=== PATIENT | male | born 1970 | race Caucasian/White ===

== ENCOUNTER 2021-05-01 09:07 | Inpatient (IN) ==
[2021-05-01] MEDS ORDERED: SODIUM CHLORIDE 0.9% 1,000 ML IV STA (09:40)
[2021-05-01] MEDS ORDERED: ONDANSETRON 4 MG/2 ML VIAL IV STA (09:40)
[2021-05-01] MEDS ORDERED: HYDROmorphone 2 MG/1 ML VIAL IV STA (09:40)
[2021-05-01 10:38] LABS: Basophils % 0.2 % (0.0-0.8); Eosinophils % 0.1 % (0.00-10.9); Hematocrit 47.5 VOL% (42.0-52.0); Hemoglobin 14.9 GM/DL (14.0-18.0); Immature Granulocytes % 0.5 %; Immature Granulocytes Absolute 0.09 #; Lymphocytes # 0.6 10*3/uL (1.4-4.0); Lymphocytes % 3.3 % (21.2-54.2); Mean Corpuscular HGB Conc 31.4 GM/DL (32-36); Mean Corpuscular Volume 80.4 FL (87-102); Mean Platelet Volume 8.4 FL (9.6-12.0); Monocytes % 6.9 % (1.7-12.7); Platelet Count 228 T/CUMM (130-400); Red Blood Count 5.91 MC/CUMM (3.8-5.5); Red Cell Distribution Width 14.7 % (9.3-17.3); White Blood Count 17.4 T/CUMM (4-12)
[2021-05-01 11:01] LABS: Albumin 3.5 G/DL (3.4-5.0); Bilirubin,Total 0.6 MG/DL (0.20-1.00); Calcium 9.4 MG/DL (8.5-10.1); Osmolality,Calculated 277.1 MOS/KG (273-304); Potassium 4.9 MMOL/L (3.5-5.1); Total Protein 8.6 G/DL (6.4-8.2)
[2021-05-01 12:28] LABS: Bacteria,Urine Many /HPF (Few); Bilirubin,Urine Negative (Negative); Blood, Urine Small mg/dL (Negative); Glucose,Urine (UA) Negative (Negative); Ketones,Urine Negative (Negative); Mucus,Urine Few /LPF (Occasional); Nitrite,Urine Positive (Negative); Protein,Urine >=500 MG/DL; RBC,Urine 42 /HPF (0-4); Urine Appearance CLOUDY (Clear); Urine Color Amber (Yellow); Urine Specific Gravity 1.016 (1.001-1.035); Urine Urobilinogen < 2.0 EU/DL (<2.0)
[2021-05-01 13:15] LABS: Band Neutrophils 2 % (0-10); Lymphocytes 7 % (20-55); Microcytosis 1+; Platelet Estimate Normal; Segmented Neutrophils 85 % (50-85); Total Cells Counted 100
[2021-05-01] MEDS ORDERED: MEROPENEM 2,000 MG in SODIUM CHLORIDE 0.9% 100 ML IV ONE (13:53)
[2021-05-01] MEDS ORDERED: ONDANSETRON 4 MG/2 ML VIAL IV PRN (14:49)
[2021-05-01] MEDS ORDERED: SODIUM CHLORIDE 0.9% 2,000 ML IV STA (14:52)
[2021-05-01] MEDS ORDERED: MEROPENEM 500 MG in SODIUM CHLORIDE 0.9% 100 ML IV SCH (15:00)
[2021-05-01] MEDS: MEROPENEM 500 MG in SODIUM CHLORIDE 0.9% 100 ML IV SCH ×2 (15:11→21:45)
[2021-05-01] MEDS: SODIUM CHLORIDE 0.9% 1,000 ML IV SCH ×2 (16:20→22:03)
[2021-05-01 16:45] LABS: Thyroid Stimulating Hormone 1.19 uIU/ml (0.358-3.74)
[2021-05-01] MEDS: PANTOPRAZOLE 40 MG TABLET PO SCH (16:55)
[2021-05-01] MEDS: POLYMYXIN/TRIMETHOPRIM OPH SOL 10 ML BOTTLE BOTH EYES SCH ×2 (18:45→20:51)
[2021-05-01] MEDS: HEPARIN 5,000 UNIT/1 ML VIAL SUBCUT SCH (20:50)
[2021-05-02] MEDS: POLYMYXIN/TRIMETHOPRIM OPH SOL 10 ML BOTTLE BOTH EYES SCH ×8 (00:15→20:58)
[2021-05-02] MEDS: SODIUM CHLORIDE 0.9% 1,000 ML IV SCH ×4 (01:10→19:45)
[2021-05-02] MEDS: MEROPENEM 500 MG in SODIUM CHLORIDE 0.9% 100 ML IV SCH ×2 (05:36→18:24)
[2021-05-02 05:46] LABS: Albumin 2.7 G/DL (3.4-5.0); Bilirubin,Total 1.7 MG/DL (0.20-1.00); Calcium 8.4 MG/DL (8.5-10.1); Osmolality,Calculated 285.4 MOS/KG (273-304); Potassium 4.3 MMOL/L (3.5-5.1); Risk Ratio 5.68; Total Protein 7.3 G/DL (6.4-8.2); VLDL Cholesterol 34.6 MG/DL
[2021-05-02 05:56] LABS: Basophils % 0.3 % (0.0-0.8); Eosinophils % 0.1 % (0.00-10.9); Hematocrit 41.9 VOL% (42.0-52.0); Hemoglobin 13.1 GM/DL (14.0-18.0); Immature Granulocytes % 0.6 %; Immature Granulocytes Absolute 0.09 #; Lymphocytes # 0.9 10*3/uL (1.4-4.0); Lymphocytes % 5.8 % (21.2-54.2); Mean Corpuscular HGB Conc 31.3 GM/DL (32-36); Mean Corpuscular Volume 81.2 FL (87-102); Mean Platelet Volume 8.7 FL (9.6-12.0); Monocytes % 8.8 % (1.7-12.7); Neutrophils % 84.4 % (38.7-73.9); Platelet Count 199 T/CUMM (130-400); Red Blood Count 5.16 MC/CUMM (3.8-5.5); Red Cell Distribution Width 15.1 % (9.3-17.3); White Blood Count 15.4 T/CUMM (4-12)
[2021-05-02] MEDS: HEPARIN 5,000 UNIT/1 ML VIAL SUBCUT SCH ×2 (08:11→20:59)
[2021-05-02] MEDS: PANTOPRAZOLE 40 MG TABLET PO SCH (08:11)
[2021-05-02 09:51] LABS: Bilirubin,Urine Negative (Negative); Blood, Urine Moderate mg/dL (Negative); Glucose,Urine (UA) Negative (Negative); Ketones,Urine Negative (Negative); Nitrite,Urine Negative (Negative); Protein,Urine >=500 MG/DL; RBC,Urine 312 /HPF (0-4); Urine Appearance CLOUDY (Clear); Urine Color Yellow (Yellow); Urine Specific Gravity 1.049 (1.001-1.035); Urine Urobilinogen < 2.0 EU/DL (<2.0)
[2021-05-02 12:26] LABS: PT Patient Result 11.6 SECS (10.5-12.0)
[2021-05-03] MEDS: POLYMYXIN/TRIMETHOPRIM OPH SOL 10 ML BOTTLE BOTH EYES SCH ×8 (00:30→22:09)
[2021-05-03] MEDS: SODIUM CHLORIDE 0.9% 1,000 ML IV SCH ×5 (01:51→23:14)
[2021-05-03] MEDS: MEROPENEM 500 MG in SODIUM CHLORIDE 0.9% 100 ML IV SCH ×2 (05:24→18:04)
[2021-05-03 05:29] LABS: Basophils % 0.4 % (0.0-0.8); Eosinophils # 0.2 10*3/uL (0.0-0.87); Eosinophils % 2.1 % (0.00-10.9); Hemoglobin 12.2 GM/DL (14.0-18.0); Immature Granulocytes % 0.4 %; Immature Granulocytes Absolute 0.03 #; Lymphocytes # 0.8 10*3/uL (1.4-4.0); Lymphocytes % 10.5 % (21.2-54.2); Mean Corpuscular HGB Conc 31.3 GM/DL (32-36); Mean Corpuscular Volume 80.9 FL (87-102); Mean Platelet Volume 8.8 FL (9.6-12.0); Neutrophils % 75.6 % (38.7-73.9); Platelet Count 172 T/CUMM (130-400); Red Blood Count 4.82 MC/CUMM (3.8-5.5); Red Cell Distribution Width 15.1 % (9.3-17.3); White Blood Count 7.7 T/CUMM (4-12)
[2021-05-03 05:54] LABS: Albumin 2.5 G/DL (3.4-5.0); Bilirubin,Total 0.6 MG/DL (0.20-1.00); Calcium 8.7 MG/DL (8.5-10.1); Osmolality,Calculated 282.5 MOS/KG (273-304); Potassium 4.2 MMOL/L (3.5-5.1); Total Protein 7.2 G/DL (6.4-8.2)
[2021-05-03] MEDS: PANTOPRAZOLE 40 MG TABLET PO SCH (08:40)
[2021-05-03] MEDS: HEPARIN 5,000 UNIT/1 ML VIAL SUBCUT SCH ×2 (08:42→22:08)
[2021-05-03] MEDS: AMPICILLIN INJ 1,000 MG in SODIUM CHLORIDE 0.9% 100 ML IV SCH (22:09)
[2021-05-04] MEDS: POLYMYXIN/TRIMETHOPRIM OPH SOL 10 ML BOTTLE BOTH EYES SCH ×8 (00:27→20:55)
[2021-05-04] MEDS: SODIUM CHLORIDE 0.9% 1,000 ML IV SCH ×4 (04:10→23:01)
[2021-05-04 05:06] LABS: Basophils % 0.3 % (0.0-0.8); Eosinophils # 0.3 10*3/uL (0.0-0.87); Eosinophils % 5.1 % (0.00-10.9); Hematocrit 39.4 VOL% (42.0-52.0); Hemoglobin 12.4 GM/DL (14.0-18.0); Immature Granulocytes % 0.3 %; Immature Granulocytes Absolute 0.02 #; Lymphocytes # 0.8 10*3/uL (1.4-4.0); Lymphocytes % 14.4 % (21.2-54.2); Mean Corpuscular HGB Conc 31.5 GM/DL (32-36); Mean Corpuscular Volume 79.9 FL (87-102); Mean Platelet Volume 8.9 FL (9.6-12.0); Monocytes % 10.9 % (1.7-12.7); Platelet Count 191 T/CUMM (130-400); Red Blood Count 4.93 MC/CUMM (3.8-5.5); Red Cell Distribution Width 14.6 % (9.3-17.3); White Blood Count 5.9 T/CUMM (4-12)
[2021-05-04 05:32] LABS: Alanine Aminotransferase 21 U/L (16-61); Albumin 2.4 G/DL (3.4-5.0); Alkaline Phosphatase 119 U/L (45-117); Aspartate Amino Transferase 16 U/L (0-37); Bilirubin,Total < 0.39 MG/DL (0.20-1.00); Blood Urea Nitrogen 26 MG/DL (7-18); Calcium 8.7 MG/DL (8.5-10.1); Carbon Dioxide 22 MMOL/L (21-32); Estimated Glom Filtration Rate 41 ML/MIN; Glucose 96 MG/DL (74-106); Osmolality,Calculated 285.3 MOS/KG (273-304); Potassium 4.1 MMOL/L (3.5-5.1); Sodium 141 MMOL/L (136-145); Total Protein 7.1 G/DL (6.4-8.2)
[2021-05-04] MEDS: AMPICILLIN INJ 1,000 MG in SODIUM CHLORIDE 0.9% 100 ML IV SCH ×3 (05:43→21:02)
[2021-05-04] MEDS: MEROPENEM 500 MG in SODIUM CHLORIDE 0.9% 100 ML IV SCH ×2 (06:22→18:25)
[2021-05-04] MEDS: PANTOPRAZOLE 40 MG TABLET PO SCH (09:26)
[2021-05-04] MEDS: HEPARIN 5,000 UNIT/1 ML VIAL SUBCUT SCH ×2 (09:28→20:52)
[2021-05-05] MEDS: POLYMYXIN/TRIMETHOPRIM OPH SOL 10 ML BOTTLE BOTH EYES SCH ×5 (01:43→16:18)
[2021-05-05] MEDS: SODIUM CHLORIDE 0.9% 1,000 ML IV SCH ×3 (04:01→16:20)
[2021-05-05] MEDS: AMPICILLIN INJ 1,000 MG in SODIUM CHLORIDE 0.9% 100 ML IV SCH (05:24)
[2021-05-05] MEDS: MEROPENEM 500 MG in SODIUM CHLORIDE 0.9% 100 ML IV SCH (06:11)
[2021-05-05 06:19] LABS: Basophils % 0.5 % (0.0-0.8); Eosinophils # 0.3 10*3/uL (0.0-0.87); Eosinophils % 4.9 % (0.00-10.9); Hemoglobin 12.3 GM/DL (14.0-18.0); Immature Granulocytes % 0.3 %; Immature Granulocytes Absolute 0.02 #; Lymphocytes % 15.6 % (21.2-54.2); Mean Corpuscular HGB Conc 31.5 GM/DL (32-36); Mean Corpuscular Volume 79.3 FL (87-102); Mean Platelet Volume 8.8 FL (9.6-12.0); Monocytes % 8.8 % (1.7-12.7); Neutrophils % 69.9 % (38.7-73.9); Platelet Count 230 T/CUMM (130-400); Red Blood Count 4.92 MC/CUMM (3.8-5.5); Red Cell Distribution Width 14.4 % (9.3-17.3); White Blood Count 6.3 T/CUMM (4-12)
[2021-05-05 08:16] VITALS: BP 129/72
[2021-05-05] MEDS: PANTOPRAZOLE 40 MG TABLET PO SCH (09:37)
[2021-05-05] MEDS: HEPARIN 5,000 UNIT/1 ML VIAL SUBCUT SCH (09:38)
[2021-05-05] MEDS ORDERED: AMPICILLIN/SULBACTAM 3,000 MG in SODIUM CHLORIDE 0.9% 100 ML IV SCH (11:00)
== END 2021-05-05 13:26 | disposition home or self-care (01) | DRG 698 ==
LOC: EDBD → EDUNIT# → N.ED 09:07 → SUATTDRO 13:55 → N.TELEN 13:55
PROVIDERS: ADMIT Internal Medicine; ATTEND Hospitalist

== ENCOUNTER 2022-01-14 06:28 | Inpatient (IN) ==
[2022-01-14] MEDS ORDERED: HYDROmorphone 1 MG/1 ML SYRINGE IV STA (06:56)
[2022-01-14] MEDS ORDERED: SODIUM CHLORIDE 0.9% 1,000 ML IV STA ×2 (06:56→10:23)
[2022-01-14 07:31] LABS: Basophils % 0.2 % (0.0-0.8); Eosinophils % 0.5 % (0.00-10.9); Hemoglobin 14.2 GM/DL (14.0-18.0); Immature Granulocytes % 0.5 %; Immature Granulocytes Absolute 0.02 #; Lymphocytes # 0.6 10*3/uL (1.4-4.0); Lymphocytes % 15.6 % (21.2-54.2); Mean Corpuscular HGB Conc 32.3 GM/DL (32-36); Mean Corpuscular Volume 80.1 FL (87-102); Mean Platelet Volume 9.5 FL (9.6-12.0); Monocytes # 1.1 10*3/uL (0.11-0.8); Monocytes % 26.2 % (1.7-12.7); Platelet Count 271 T/CUMM (130-400); Red Blood Count 5.49 MC/CUMM (3.8-5.5); Red Cell Distribution Width 18.4 % (9.3-17.3); White Blood Count 4.1 T/CUMM (4-12)
[2022-01-14 07:50] LABS: Alanine Aminotransferase 30 U/L (16-61); Albumin 3.4 G/DL (3.4-5.0); Alkaline Phosphatase 182 U/L (45-117); Aspartate Amino Transferase 12 U/L (0-37); Blood Urea Nitrogen 23 MG/DL (7-18); Calcium 10.2 MG/DL (8.5-10.1); Carbon Dioxide 23 MMOL/L (21-32); Chloride 97 MMOL/L (98-107); Glucose 161 MG/DL (74-106); Osmolality,Calculated 274.2 MOS/KG (273-304); Potassium 3.1 MMOL/L (3.5-5.1); Sodium 134 MMOL/L (136-145); Total Protein 9.1 G/DL (6.4-8.2)
[2022-01-14 07:59] LABS: Band Neutrophils 15 % (0-10); Lymphocytes 16 % (20-55); Total Cells Counted 100
[2022-01-14 08:01] LABS: Hypochromia Slight; Microcytosis 1+; Polychromasia Slight
[2022-01-14 08:03] LABS: Platelet Estimate Normal
[2022-01-14] MEDS ORDERED: PIPERACILLIN/TAZOBACTAM 3,375 MG in SODIUM CHLORIDE 0.9% 100 ML IV STA (08:18)
[2022-01-14] MEDS ORDERED: DEXTROSE 10% 250 ML BAG IV PRN (10:33)
[2022-01-14] MEDS ORDERED: GLUCAGON 1 MG VIAL IM PRN (10:33)
[2022-01-14] MEDS ORDERED: POTASSIUM CHLORIDE RIDER 10 MEQ/100 ML PREMIX IV PRN (10:53)
[2022-01-14] MEDS ORDERED: LACTATED RINGERS 1,000 ML IV SCH (11:00)
[2022-01-14] MEDS: ENOXAPARIN 40 MG/0.4 ML SYRINGE SUBCUT SCH (11:21)
[2022-01-14 12:29] LABS: Urine Appearance Cloudy (Clear); Urine Color Brown (Yellow)
[2022-01-14 12:30] LABS: Amorphous Crystals,Urine Occasional /HPF (Few); Bilirubin,Urine Small mg/dL (Negative); Blood, Urine Moderate mg/dL (Negative); Glucose,Urine (UA) Negative (Negative); Ketones,Urine Trace mg/dL (Negative); Mucus,Urine Occasional /LPF (Occasional); Nitrite,Urine Positive (Negative); Protein,Urine >=300 mg/dL (Negative); RBC,Urine 138 /HPF (0-4); Urine pH 8.5 (4.5-8.0)
[2022-01-14] MEDS ORDERED: MAGNESIUM SULF RIDER 4 GM/100 ML PREMIX IV ONE (12:51)
[2022-01-14] MEDS: POTASSIUM CHLORIDE RIDER 20 MEQ/100 ML PREMIX IV SCH ×2 (16:25→20:16)
[2022-01-14] MEDS: PIPERACILLIN/TAZOBACTAM 3,375 MG in SODIUM CHLORIDE 0.9% 100 ML IV SCH (17:33)
[2022-01-14] MEDS: ONDANSETRON 4 MG/2 ML VIAL IV PRN (20:16)
[2022-01-14] MEDS: HYDROmorphone 1 MG/1 ML SYRINGE IV PRN (20:17)
[2022-01-15] MEDS: PIPERACILLIN/TAZOBACTAM 3,375 MG in SODIUM CHLORIDE 0.9% 100 ML IV SCH ×3 (00:11→16:53)
[2022-01-15] MEDS: ONDANSETRON 4 MG/2 ML VIAL IV PRN ×2 (05:04→21:05)
[2022-01-15 06:03] LABS: Basophils % 0.6 % (0.0-0.8); Eosinophils # 0.1 10*3/uL (0.0-0.87); Eosinophils % 2.1 % (0.00-10.9); Hematocrit 40.1 VOL% (42.0-52.0); Hemoglobin 12.7 GM/DL (14.0-18.0); Immature Granulocytes % 0.3 %; Immature Granulocytes Absolute 0.01 #; Lymphocytes # 0.7 10*3/uL (1.4-4.0); Mean Corpuscular HGB Conc 31.7 GM/DL (32-36); Mean Corpuscular Volume 81.2 FL (87-102); Mean Platelet Volume 9.4 FL (9.6-12.0); Monocytes # 0.9 10*3/uL (0.11-0.8); Monocytes % 27.5 % (1.7-12.7); Neutrophils % 49.5 % (38.7-73.9); Platelet Count 250 T/CUMM (130-400); Red Blood Count 4.94 MC/CUMM (3.8-5.5); Red Cell Distribution Width 18.2 % (9.3-17.3); White Blood Count 3.4 T/CUMM (4-12)
[2022-01-15 06:21] LABS: Calcium 9.6 MG/DL (8.5-10.1); Osmolality,Calculated 279.7 MOS/KG (273-304); Potassium 3.3 MMOL/L (3.5-5.1)
[2022-01-15 07:17] LABS: Band Neutrophils 7 % (0-10); Eosinophils 1 % (0-10); Hypochromia Slight; Lymphocytes 21 % (20-55); Microcytosis Slight; Platelet Estimate Adequate; Total Cells Counted 100
[2022-01-15] MEDS: PANTOPRAZOLE 40 MG VIAL IV SCH (10:28)
[2022-01-15] MEDS ORDERED: hydrALAZINE 20 MG/1 ML VIAL IV PRN (12:38)
[2022-01-15] MEDS: ENOXAPARIN 40 MG/0.4 ML SYRINGE SUBCUT SCH (14:53)
[2022-01-15] MEDS: POTASSIUM CHLORIDE RIDER 10 MEQ/100 ML PREMIX IV SCH ×2 (14:54→16:01)
[2022-01-15] MEDS: LACTATED RINGERS 1,000 ML IV SCH (16:30)
[2022-01-15] MEDS: HYDROmorphone 1 MG/1 ML SYRINGE IV PRN ×2 (16:53→21:05)
[2022-01-16] MEDS: PIPERACILLIN/TAZOBACTAM 3,375 MG in SODIUM CHLORIDE 0.9% 100 ML IV SCH ×2 (00:18→08:30)
[2022-01-16] MEDS: HYDROmorphone 1 MG/1 ML SYRINGE IV PRN ×7 (00:18→21:47)
[2022-01-16] MEDS: LACTATED RINGERS 1,000 ML IV SCH ×2 (00:22→12:30)
[2022-01-16] MEDS: ONDANSETRON 4 MG/2 ML VIAL IV PRN ×2 (03:07→21:48)
[2022-01-16 05:29] LABS: Basophils % 0.5 % (0.0-0.8); Eosinophils # 0.1 10*3/uL (0.0-0.87); Eosinophils % 2.5 % (0.00-10.9); Hematocrit 38.6 VOL% (42.0-52.0); Hemoglobin 12.3 GM/DL (14.0-18.0); Immature Granulocytes % 0.7 %; Immature Granulocytes Absolute 0.03 #; Lymphocytes # 0.9 10*3/uL (1.4-4.0); Lymphocytes % 20.9 % (21.2-54.2); Mean Corpuscular HGB Conc 31.9 GM/DL (32-36); Mean Corpuscular Volume 81.4 FL (87-102); Mean Platelet Volume 9.4 FL (9.6-12.0); Monocytes # 0.9 10*3/uL (0.11-0.8); Monocytes % 21.1 % (1.7-12.7); Neutrophils % 54.3 % (38.7-73.9); Platelet Count 277 T/CUMM (130-400); Red Blood Count 4.74 MC/CUMM (3.8-5.5); White Blood Count 4.4 T/CUMM (4-12)
[2022-01-16 05:50] LABS: Calcium 9.7 MG/DL (8.5-10.1); Osmolality,Calculated 283.4 MOS/KG (273-304); Potassium 3.3 MMOL/L (3.5-5.1)
[2022-01-16 07:34] LABS: Band Neutrophils 2 % (0-10); Eosinophils 2 % (0-10); Hypochromia Slight; Lymphocytes 24 % (20-55); Microcytosis Slight; Platelet Estimate Adequate; Total Cells Counted 100
[2022-01-16] MEDS: PANTOPRAZOLE 40 MG VIAL IV SCH (09:33)
[2022-01-16] MEDS: POTASSIUM CHLORIDE RIDER 10 MEQ/100 ML PREMIX IV SCH ×3 (11:48→13:57)
[2022-01-16] MEDS: ENOXAPARIN 40 MG/0.4 ML SYRINGE SUBCUT SCH (11:54)
[2022-01-16] MEDS ORDERED: POTASSIUM CHLORIDE 20 MEQ TABLET PO ONE (15:48)
[2022-01-16] MEDS: AMPICILLIN INJ 2,000 MG in SODIUM CHLORIDE 0.9% 100 ML IV SCH ×2 (17:03→21:48)
[2022-01-17] MEDS: HYDROmorphone 1 MG/1 ML SYRINGE IV PRN ×3 (00:48→08:20)
[2022-01-17] MEDS: AMPICILLIN INJ 2,000 MG in SODIUM CHLORIDE 0.9% 100 ML IV SCH ×4 (00:48→11:43)
[2022-01-17] MEDS: LACTATED RINGERS 1,000 ML IV SCH (04:21)
[2022-01-17 04:37] LABS: Basophils % 0.4 % (0.0-0.8); Eosinophils # 0.2 10*3/uL (0.0-0.87); Eosinophils % 2.7 % (0.00-10.9); Immature Granulocytes % 1.1 %; Immature Granulocytes Absolute 0.06 #; Lymphocytes # 1.2 10*3/uL (1.4-4.0); Lymphocytes % 21.7 % (21.2-54.2); Mean Corpuscular HGB Conc 31.4 GM/DL (32-36); Mean Corpuscular Volume 82.5 FL (87-102); Mean Platelet Volume 9.2 FL (9.6-12.0); Monocytes # 0.9 10*3/uL (0.11-0.8); Monocytes % 17.1 % (1.7-12.7); Platelet Count 269 T/CUMM (130-400); Red Blood Count 4.24 MC/CUMM (3.8-5.5); Red Cell Distribution Width 18.1 % (9.3-17.3); White Blood Count 5.5 T/CUMM (4-12)
[2022-01-17 05:05] LABS: Calcium 9.1 MG/DL (8.5-10.1); Osmolality,Calculated 282.3 MOS/KG (273-304); Potassium 3.4 MMOL/L (3.5-5.1)
[2022-01-17 05:11] LABS: Eosinophils 2 % (0-10); Hypochromia Slight; Lymphocytes 21 % (20-55); Microcytosis Slight; Platelet Estimate Adequate; Total Cells Counted 100
[2022-01-17] MEDS: PANTOPRAZOLE 40 MG VIAL IV SCH (08:20)
[2022-01-17] MEDS ORDERED: SODIUM CHLORIDE 0.9% 1,000 ML IV SCH (09:00)
[2022-01-17] MEDS ORDERED: propofoL 200 MG/20 ML VIAL IV ONE (09:46)
[2022-01-17] MEDS ORDERED: LIDOCAINE 2% 5 ML VIAL ONE (09:46)
[2022-01-17] MEDS: ENOXAPARIN 40 MG/0.4 ML SYRINGE SUBCUT SCH (11:41)
[2022-01-17 12:27] VITALS: BP 121/80
[2022-01-17] MEDS ORDERED: HYDROCORTISONE 25 MG SUPP RECTAL SCH (15:00)
== END 2022-01-17 15:28 | disposition home or self-care (01) | DRG 389 ==
LOC: N.ED 06:28 → SUATTDRO 09:54 → N.EDINP 09:54 → N.TELES 12:49
PROVIDERS: ADMIT Emergency Medicine; ATTEND Internal Medicine

== ENCOUNTER 2022-04-17 11:14 | Inpatient (IN) ==
[2022-04-17] MEDS ORDERED: HYDROmorphone 1 MG/1 ML SYRINGE IV STA (11:43)
[2022-04-17] MEDS ORDERED: ONDANSETRON 4 MG/2 ML VIAL IV STA (11:46)
[2022-04-17 12:14] LABS: Basophils % 0.6 % (0.0-0.8); Eosinophils # 0.1 10*3/uL (0.0-0.87); Eosinophils % 2.8 % (0.00-10.9); Hematocrit 33.1 VOL% (42.0-52.0); Hemoglobin 10.4 GM/DL (14.0-18.0); Immature Granulocytes % 0.4 %; Immature Granulocytes Absolute 0.02 #; Lymphocytes # 0.4 10*3/uL (1.4-4.0); Mean Corpuscular HGB Conc 31.4 GM/DL (32-36); Mean Corpuscular Volume 86.6 FL (87-102); Mean Platelet Volume 8.8 FL (9.6-12.0); Monocytes # 0.5 10*3/uL (0.11-0.8); Monocytes % 11.3 % (1.7-12.7); Neutrophils % 75.9 % (38.7-73.9); Platelet Count 194 T/CUMM (130-400); Red Blood Count 3.82 MC/CUMM (3.8-5.5); White Blood Count 4.7 T/CUMM (4-12)
[2022-04-17 12:24] LABS: INR 1.2; Partial Thromboplastin Time 32.5 SECS (23.7-32.9)
[2022-04-17] MEDS ORDERED: DEXAMETHASONE 10 MG/1 ML VIAL IV STA (12:30)
[2022-04-17 12:37] LABS: Calcium 8.5 MG/DL (8.5-10.1); Osmolality,Calculated 280.1 MOS/KG (273-304); Potassium 3.1 MMOL/L (3.5-5.1)
[2022-04-17 13:18] LABS: Sedimentation Rate-Westergren 57 MM/HR (0-15)
[2022-04-17] MEDS ORDERED: ACETAMINOPHEN 325 MG TABLET PO PRN (13:19)
[2022-04-17] MEDS ORDERED: POTASSIUM CHLORIDE 20 MEQ TABLET PO STA (13:31)
[2022-04-17] MEDS: HYDROmorphone 1 MG/1 ML SYRINGE IV PRN ×3 (16:41→23:54)
[2022-04-17] MEDS: ONDANSETRON 4 MG/2 ML VIAL IV PRN (16:52)
[2022-04-17] MEDS: DEXAMETHASONE 4 MG/1 ML VIAL IV SCH ×2 (18:20→23:53)
[2022-04-17] MEDS ORDERED: METOCLOPRAMIDE 5 MG TABLET PO PRN (19:44)
[2022-04-17] MEDS ORDERED: TEMAZEPAM 15 MG CAPSULE PO PRN (19:44)
[2022-04-17] MEDS ORDERED: PROMETHAZINE 25 MG TABLET PO PRN (19:44)
[2022-04-17] MEDS: MORPHINE ER 15 MG TABLET PO SCH (20:41)
[2022-04-17] MEDS ORDERED: ATORVASTATIN 40 MG TABLET PO SCH (21:00)
[2022-04-17] MEDS: TAMSULOSIN 0.4 MG CAPSULE PO SCH (21:10)
[2022-04-18 04:57] LABS: Hematocrit 35.6 VOL% (42.0-52.0); Hemoglobin 11.1 GM/DL (14.0-18.0); Immature Granulocytes % 0.7 %; Immature Granulocytes Absolute 0.03 #; Lymphocytes # 0.4 10*3/uL (1.4-4.0); Lymphocytes % 8.6 % (21.2-54.2); Mean Corpuscular HGB Conc 31.2 GM/DL (32-36); Mean Corpuscular Volume 85.8 FL (87-102); Mean Platelet Volume 8.8 FL (9.6-12.0); Monocytes # 0.1 10*3/uL (0.11-0.8); Monocytes % 1.1 % (1.7-12.7); Neutrophils % 89.6 % (38.7-73.9); Platelet Count 202 T/CUMM (130-400); Red Blood Count 4.15 MC/CUMM (3.8-5.5); Red Cell Distribution Width 16.1 % (9.3-17.3); White Blood Count 4.5 T/CUMM (4-12)
[2022-04-18 05:14] LABS: Calcium 8.7 MG/DL (8.5-10.1); Osmolality,Calculated 278.5 MOS/KG (273-304); Potassium 4.2 MMOL/L (3.5-5.1)
[2022-04-18] MEDS: DEXAMETHASONE 4 MG/1 ML VIAL IV SCH ×3 (06:17→19:48)
[2022-04-18] MEDS: HYDROmorphone 1 MG/1 ML SYRINGE IV PRN ×4 (09:09→19:49)
[2022-04-18] MEDS: SERTRALINE 100 MG TABLET PO SCH (09:10)
[2022-04-18] MEDS: MORPHINE ER 15 MG TABLET PO SCH ×2 (09:10→21:48)
[2022-04-18] MEDS: PANTOPRAZOLE 40 MG TABLET PO SCH (09:10)
[2022-04-18] MEDS: ONDANSETRON 4 MG/2 ML VIAL IV PRN (19:50)
[2022-04-18] MEDS: TAMSULOSIN 0.4 MG CAPSULE PO SCH (21:50)
[2022-04-19] MEDS: DEXAMETHASONE 4 MG/1 ML VIAL IV SCH ×3 (03:02→13:18)
[2022-04-19] MEDS: ONDANSETRON 4 MG/2 ML VIAL IV PRN ×2 (06:03→20:22)
[2022-04-19] MEDS: HYDROmorphone 1 MG/1 ML SYRINGE IV PRN ×4 (06:03→16:30)
[2022-04-19 06:41] LABS: Calcium 6.8 MG/DL (8.5-10.1); Osmolality,Calculated 290.7 MOS/KG (273-304); Potassium 3.1 MMOL/L (3.5-5.1)
[2022-04-19 07:07] LABS: Hematocrit 31.7 VOL% (42.0-52.0); Hemoglobin 10.1 GM/DL (14.0-18.0); Immature Granulocytes % 0.8 %; Immature Granulocytes Absolute 0.06 #; Lymphocytes # 0.5 10*3/uL (1.4-4.0); Mean Corpuscular HGB Conc 31.9 GM/DL (32-36); Mean Corpuscular Volume 85.4 FL (87-102); Mean Platelet Volume 9.2 FL (9.6-12.0); Monocytes # 0.3 10*3/uL (0.11-0.8); Monocytes % 3.5 % (1.7-12.7); Neutrophils % 89.7 % (38.7-73.9); Platelet Count 211 T/CUMM (130-400); Red Blood Count 3.71 MC/CUMM (3.8-5.5); Red Cell Distribution Width 16.4 % (9.3-17.3)
[2022-04-19] MEDS ORDERED: POTASSIUM CHLORIDE 20 MEQ TABLET PO ONE (07:39)
[2022-04-19] MEDS: PANTOPRAZOLE 40 MG TABLET PO SCH (09:08)
[2022-04-19] MEDS: SERTRALINE 100 MG TABLET PO SCH (09:08)
[2022-04-19] MEDS ORDERED: ALUM/MAG/SIMETH/LIDO VISC 1:1 30 ML BOTTLE PO ONE (10:18)
[2022-04-19] MEDS: MORPHINE ER 15 MG TABLET PO SCH ×2 (10:23→21:17)
[2022-04-19] MEDS: DEXAMETHASONE 4 MG TABLET PO SCH ×2 (16:30→21:17)
[2022-04-19] MEDS: TAMSULOSIN 0.4 MG CAPSULE PO SCH (21:16)
[2022-04-20] MEDS: ONDANSETRON 4 MG/2 ML VIAL IV PRN (02:30)
[2022-04-20] MEDS: HYDROmorphone 1 MG/1 ML SYRINGE IV PRN ×3 (02:30→12:40)
[2022-04-20 04:47] LABS: Hematocrit 33.1 VOL% (42.0-52.0); Hemoglobin 10.3 GM/DL (14.0-18.0); Immature Granulocytes Absolute 0.06 #; Lymphocytes # 0.3 10*3/uL (1.4-4.0); Lymphocytes % 5.6 % (21.2-54.2); Mean Corpuscular HGB Conc 31.1 GM/DL (32-36); Mean Corpuscular Volume 84.2 FL (87-102); Monocytes # 0.2 10*3/uL (0.11-0.8); Monocytes % 2.8 % (1.7-12.7); Neutrophils % 90.6 % (38.7-73.9); Platelet Count 196 T/CUMM (130-400); Red Blood Count 3.93 MC/CUMM (3.8-5.5); Red Cell Distribution Width 16.2 % (9.3-17.3); White Blood Count 6.1 T/CUMM (4-12)
[2022-04-20 05:20] LABS: Calcium 8.4 MG/DL (8.5-10.1); Osmolality,Calculated 284.5 MOS/KG (273-304); Potassium 3.9 MMOL/L (3.5-5.1)
[2022-04-20 05:35] LABS: Lymphocytes 5 % (20-55); Platelet Estimate Adequate; Total Cells Counted 100
[2022-04-20] MEDS ORDERED: MAGNESIUM SULF RIDER 2 GM/50 ML PREMIX IV ONE (07:26)
[2022-04-20] MEDS: PANTOPRAZOLE 40 MG TABLET PO SCH (08:21)
[2022-04-20] MEDS: DEXAMETHASONE 4 MG TABLET PO SCH (08:21)
[2022-04-20] MEDS: MORPHINE ER 15 MG TABLET PO SCH (08:21)
[2022-04-20] MEDS: SERTRALINE 100 MG TABLET PO SCH (08:21)
[2022-04-20] MEDS ORDERED: ALUM/MAG/SIMETH/LIDO VISC 1:1 30 ML BOTTLE PO ONE (10:32)
[2022-04-20 11:45] VITALS: BP 129/76
== END 2022-04-20 13:16 | disposition hospice, home (50) | DRG 54 ==
LOC: EDBD → EDUNIT# → EDSEX → N.ED 11:14 → SUATTDRO 13:19 → N.EDINP 13:19 → N.TELES 14:42
PROVIDERS: ADMIT Internal Medicine; ATTEND Internal Medicine